=== PATIENT | male | born 1995 | race African-American/Black ===

== ENCOUNTER 2018-03-29 16:25 | Emergency (ER) | payer OTHER ==
[~2018-03-29] VITALS: Ht 177.8 cm; Wt 74.4 kg
[2018-03-29 16:31] VITALS: Ht 177.8 cm; Wt 74.4 kg
[2018-03-29] MEDS ORDERED: SOD CHLORIDE 0.9% 1,000 ML IV STA (16:53)
[2018-03-29] MEDS ORDERED: DEXAMETHASONE 10 MG/ML 1 ML INJ IV ONE (17:00)
[2018-03-29] MEDS ORDERED: CLINDAMYCIN 600 MG/D5W (PMX) 50 ML IVPB SCH (17:00)
[2018-03-29] MEDS ORDERED: ONDANSETRON 4 MG INJ IV STA (17:40)
[2018-03-29] MEDS ORDERED: morphine 4 MG/ML VIAL IV STA (17:40)
[2018-03-29] MEDS ORDERED: HYDR-4011 PO (18:17)
[2018-03-29] MEDS ORDERED: NAPR-985 PO (18:17)
[2018-03-29] MEDS ORDERED: CLIN300C10 PO (18:17)
[2018-03-29] MEDS ORDERED: PRED20TA PO (18:17)
[2018-03-29 19:05] VITALS: BP 109/55; PULSE 69; RESP 18
--- NOTE | 2018-03-29 19:08 | ERD ---
ER Documentation Chief Complaint Chief Complaint SORE THROAT "FEELS LIKE THROAT IS CLOSING"; O2 SAT/RR WNL HPI 23-year-old male presenting with sore throat times 2 days. Patient was seen at [facility] clinic and given penicillin however states that he has had continued pain with tactile fevers at home. He took ibuprofen earlier today. Denies any cough or runny nose. Has pain with swallowing. Denies medical problems. NKDA. Surgical history denies. Social history smokes 10 cigarettes a day. Drug use denies ROS All systems reviewed and are negative except as per history of present illness. Medications Home Meds Active Scripts Naproxen* (Naprosyn*) 500 Mg Tablet, 500 MG PO BID PRN for PAIN AND/OR INFLAMMATION, #30 TAB Prov:LYNDON HERNÁNDEZ PA-C 03/29/18 Hydrocodone/Acetaminophen ([place] 5-325 Tablet) 1 Each Tablet, 1 TAB PO Q6H PRN for PAIN, #7 TAB Prov:LYNDON HERNÁNDEZ PA-C 03/29/18 Prednisone* (Prednisone*) 20 Mg Tab, 40 MG PO DAILY for 4 Days, TAB Prov:LYNDON HERNÁNDEZ PA-C 03/29/18 Clindamycin Hcl* (Clindamycin Hcl*) 300 Mg Capsule, 300 MG PO TID for 10 Days, CAP Prov:LYNDON HERNÁNDEZ PA-C 03/29/18 Allergies Allergies: Coded Allergies: No Known Allergy (Unverified , 03/29/18) PMhx/Soc Medical and Surgical Hx: pt denies Medical Hx, pt denies Surgical Hx Hx Alcohol Use: No Hx Substance Use: No Hx Tobacco Use: No Smoking Status: Never smoker FmHx Family History: No diabetes, No coronary disease, No other Physical Exam Vitals Vital Signs Date Temp Pulse Resp B/P (MAP) Pulse Ox O2 O2 Flow FiO2 Time Delivery Rate 03/29/18 98.3 104 16 124/68 98 16:31 (86) Physical Exam GENERAL: The patient is well-appearing, well-nourished, in no acute distress HEENT: Atraumatic. Conjunctivae are pink. Pupils equal, round, and reactive to light. There is no scleral icterus. Tympanic membranes clear bilaterally. Oropharynx erythematous to the right side with mild uvular deviation. Airways patent. NECK: C-spine is soft and supple. There is no meningismus. There is no cervical lymphadenopathy. CHEST: Clear to auscultation bilaterally. There are no rales, wheezes or rhonchi. HEART: Regular rate and rhythm. No murmurs, clicks, rubs or gallops. No S3 or S4. Results 24 hrs Current Medications Medications Dose Sig/Jose Start Time Status Last (Trade) Ordered Route PRN Stop Time Admin Dose Reason Admin Sodium 1,000 ml @ Q1H STAT 03/29/18 DC 03/29/18 Chloride 1,000 mls/hr IV 16:53 03/29/18 17:50 17:52 Clindamycin 50 ml @ 50 ONCE IVPB 03/29/18 DC 03/29/18 HCl/ mls/hr 17:00 03/29/18 18:00 Dextrose 17:59 10 mg ONCE ONCE 03/29/18 DC 03/29/18 Dexamethasone IV 17:00 03/29/18 18:00 (Decadron) 17:01 Morphine 4 mg ONCE STAT 03/29/18 DC 03/29/18 Sulfate IV 17:40 03/29/18 17:50 (morphine) 17:42 Ondansetron 4 mg ONCE STAT 03/29/18 DC 03/29/18 HCl (Zofran IV 17:40 03/29/18 17:50 Inj) 17:42 Procedures/MDM ER course: IV clindamycin, IV Decadron, morphine and 1 L normal saline given ED. Upon reevaluation patient symptoms are dramatically improved. DM: 23-year-old male presenting with peritonsillar abscess. I have low suspicion for sepsis. I have low suspicion for airway compromise. Patient symptoms improved with medication in the ER and he is discharged with continued antibiotics. Patient is recommended to return in 2 days for close evaluation. If symptoms progress then patient will need incision and drainage however do not feel that is indicated at this time. Patient is discharged stricter precautions in addition to pain medication. All questions answered at discharge Departure Diagnosis: Primary Impression: Peritonsillar abscess Condition: Stable Patient Instructions: Peritonsillar Abscess Referrals: COMM[facility]ITY CLINICS YOU HAVE RECEIVED A MEDICAL SCREENING EXAM AND THE RESULTS INDICATE THAT YOU DO NOT HAVE A CONDITION THAT REQUIRES URGENT TREATMENT IN THE EMERGENCY DEPARTMENT. FURTHER EVALUATION AND TREATMENT OF YOUR CONDITION CAN WAIT UNTIL YOU ARE SEEN IN YOUR DOCTORS OFFICE WITHIN THE NEXT 1-2 DAYS. IT IS YOUR RESPONSIBILITY TO MAKE AN APPOINTMENT FOR FOLOW-UP CARE. IF YOU HAVE A PRIMARY DOCTOR --you should call your primary doctor and schedule an appointment IF YOU DO NOT HAVE A PRIMARY DOCTOR YOU CAN CALL OUR PHYSICIAN REFERRAL HOTLINE AT IF YOU CAN NOT AFFORD TO SEE A PHYSICIAN YOU CAN CHOSE FROM THE FOLLOWING [facility] [address] [facility] [address] [facility] [facility] [address] [facility] [address] [facility] [address] [facility] [address] Additional Instructions: FOLLOW UP WITH YOUR PRIMARY CARE PHYSICIAN TOMORROW.Return to this facility if you are not improving as expected. LYNDON HERNÁNDEZ PA-C Mar 29, 2018 19:08
== END 2018-03-29 19:05 | disposition home or self-care (01) ==
LOC: FTE 16:25
DX: J36 Peritonsillar abscess (principal)
CPT/HCPCS: 96374; 96375; 99284; J1100; J2270; J2405; J7030